=== PATIENT | male | born 1960 | race Caucasian/White ===

== ENCOUNTER → 2016-06-01 | Outpatient (REF) | payer MEDICARE ==
[~2016-06-01] MED LIST: AGGRCAP PO; ASPI325T PO; ATOR80TA14 PO; FISH100035 PO; HYDR12.55 PO; LOPR50TA PO; LOSA100T PO; METO100T PO; MULTTAB4 PO; PRAV40TA2 PO
[2016-06-01 15:10] LABS: MEAN CORPUSCULAR HEMOGLOBIN 30.8 pg (27.0-33.0); MEAN CORPUSCULAR HGB CONC 33.4 g/dl (32.0-36.5); MEAN CORPUSCULAR VOLUME 92.3 fl (80.0-96.0); RED CELL DISTRIBUTION WIDTH 13.3 % (11.5-14.5); WHITE BLOOD COUNT 8.2 K/mm3 (4.0-10.0)
[2016-06-01 17:07] LABS: ALBUMIN 3.7 GM/DL (3.2-5.2); ALBUMIN/GLOBULIN RATIO 1.19 (1.00-1.93); ALKALINE PHOSPHATASE 77 U/L (45-117); ALT/SGPT 23 U/L (12-78); ANION GAP 6 MEQ/L (8-16); AST/SGOT 17 U/L (15-37); BILIRUBIN,TOTAL 0.4 MG/DL (0.2-1.0); BLOOD UREA NITROGEN 16 MG/DL (7-18); CALCIUM LEVEL 8.5 MG/DL (8.5-10.1); CARBON DIOXIDE LEVEL 29 MEQ/L (21-32); CHLORIDE LEVEL 107 MEQ/L (98-107); CHOLESTEROL LEVEL 187 MG/DL (<200); CREATININE FOR GFR 1.13 MG/DL (0.70-1.30); FERRITIN 212 NG/ML (26-388); GLOMERULAR FILTRATION RATE > 60.0 (>56); GLUCOSE, FASTING 94 MG/DL (70-105); PERCENT SATURATION 28.3 % (19.7-37.4); POTASSIUM SERUM 4.1 MEQ/L (3.5-5.1); SODIUM LEVEL 142 MEQ/L (136-145); TOTAL IRON BINDING CAPACITY 300 UG/DL (250-450); TOTAL PROTEIN 6.8 GM/DL (6.4-8.2); TRIGLYCERIDES LEVEL 90 MG/DL (<150)
== END ==
LOC: M SFHCLACO 09:33
PROVIDERS: ATTEND Physician Assistant
DX: D64.9 Anemia, unspecified (principal); I10 Essential (primary) hypertension; E78.2 Mixed hyperlipidemia; E55.9 Vitamin D deficiency, unspecified

== ENCOUNTER → 2016-12-21 | Outpatient (REF) | payer MEDICARE ==
[2016-12-21 16:24] LABS: ALBUMIN 4.2 GM/DL (3.2-5.2); ALBUMIN/GLOBULIN RATIO 1.27 (1.00-1.93); ALKALINE PHOSPHATASE 82 U/L (45-117); ALT/SGPT 24 U/L (12-78); ANION GAP 6 MEQ/L (8-16); AST/SGOT 16 U/L (15-37); BILIRUBIN,TOTAL 0.8 MG/DL (0.2-1.0); BLOOD UREA NITROGEN 13 MG/DL (7-18); CALCIUM LEVEL 9.8 MG/DL (8.5-10.1); CARBON DIOXIDE LEVEL 30 MEQ/L (21-32); CHLORIDE LEVEL 103 MEQ/L (98-107); CREATININE FOR GFR 1.02 MG/DL (0.70-1.30); GLOMERULAR FILTRATION RATE > 60.0 (>56); GLUCOSE, FASTING 84 MG/DL (70-105); MAGNESIUM LEVEL 1.6 MG/DL (1.8-2.4); POTASSIUM SERUM 4.1 MEQ/L (3.5-5.1); SODIUM LEVEL 139 MEQ/L (136-145); TOTAL PROTEIN 7.5 GM/DL (6.4-8.2)
== END ==
LOC: M SFHCLACO 08:42
PROVIDERS: ATTEND Physician Assistant
DX: I10 Essential (primary) hypertension (principal); E78.2 Mixed hyperlipidemia; E61.2 Magnesium deficiency

== ENCOUNTER → 2016-12-28 | Outpatient (REF) | payer MEDICARE ==
[2016-12-28 15:49] LABS: MEAN CORPUSCULAR HEMOGLOBIN 32.3 pg (27.0-33.0); MEAN CORPUSCULAR HGB CONC 34.6 g/dl (32.0-36.5); MEAN CORPUSCULAR VOLUME 93.4 fl (80.0-96.0); RED CELL DISTRIBUTION WIDTH 13.7 % (11.5-14.5)
[2016-12-28 16:07] LABS: PERCENT SATURATION 28.8 % (19.7-50.0)
== END ==
LOC: M SFHCLACO 08:58
PROVIDERS: ATTEND Physician Assistant
DX: D64.9 Anemia, unspecified (principal); E78.2 Mixed hyperlipidemia; E55.9 Vitamin D deficiency, unspecified
CPT/HCPCS: 36415; 80061; 82306; 82728; 83550; 85027; G0463

== ENCOUNTER → 2017-06-28 | Outpatient (REF) | payer MEDICARE ==
[2017-06-28 15:30] LABS: HEMOGLOBIN 13.2 g/dl (13.5-17.5); MEAN CORPUSCULAR HEMOGLOBIN 31.1 pg (27.0-33.0); MEAN CORPUSCULAR HGB CONC 34.7 g/dl (32.0-36.5); MEAN CORPUSCULAR VOLUME 89.6 fl (80.0-96.0); PLATELET COUNT, AUTOMATED 331 10^3/uL (150-450); RED BLOOD COUNT 4.24 10^6/uL (4.30-6.10); RED CELL DISTRIBUTION WIDTH 13.2 % (11.5-14.5); WHITE BLOOD COUNT 7.3 10^3/uL (4.0-10.0)
[2017-06-28 15:46] LABS: ALBUMIN 3.7 GM/DL (3.2-5.2); ALBUMIN/GLOBULIN RATIO 1.16 (1.00-1.93); ALKALINE PHOSPHATASE 81 U/L (45-117); ALT/SGPT 29 U/L (12-78); ANION GAP 10 MEQ/L (8-16); AST/SGOT 21 U/L (7-37); BILIRUBIN,TOTAL 0.4 MG/DL (0.2-1.0); BLOOD UREA NITROGEN 12 MG/DL (7-18); CALCIUM LEVEL 8.5 MG/DL (8.5-10.1); CARBON DIOXIDE LEVEL 26 MEQ/L (21-32); CHLORIDE LEVEL 100 MEQ/L (98-107); CHOLESTEROL LEVEL 124 MG/DL (<200); CHOLESTEROL RISK RATIO 3.263 (<5); CREATININE FOR GFR 1.18 MG/DL (0.70-1.30); FERRITIN 268 NG/ML (26-388); GLOMERULAR FILTRATION RATE > 60.0 (>56); GLUCOSE, FASTING 76 MG/DL (70-100); HDL CHOLESTEROL 38 MG/DL (>40); IRON (FE) 88 UG/DL (65-175); LDL CHOLESTEROL 40.2 MG/DL (<100); NON-HDL-C 86 MG/DL; PERCENT SATURATION 27.4 % (19.7-50.0); POTASSIUM SERUM 3.3 MEQ/L (3.5-5.1); SODIUM LEVEL 136 MEQ/L (136-145); TOTAL IRON BINDING CAPACITY 321 UG/DL (250-450); TOTAL PROTEIN 6.9 GM/DL (6.4-8.2); TRIGLYCERIDES LEVEL 229 MG/DL (<150)
== END ==
LOC: M SFHCLACO 10:43
DX: D64.9 Anemia, unspecified (principal); I10 Essential (primary) hypertension; E78.2 Mixed hyperlipidemia; E61.2 Magnesium deficiency; E55.9 Vitamin D deficiency, unspecified; R53.83 Other fatigue
CPT/HCPCS: 83550

== ENCOUNTER → 2017-07-07 | Outpatient (REF) | payer MEDICARE ==
[2017-07-07 14:47] LABS: HEMATOCRIT 39.2 % (42.0-52.0); HEMOGLOBIN 13.4 g/dl (13.5-17.5); MEAN CORPUSCULAR HEMOGLOBIN 30.6 pg (27.0-33.0); MEAN CORPUSCULAR HGB CONC 34.2 g/dl (32.0-36.5); MEAN CORPUSCULAR VOLUME 89.5 fl (80.0-96.0); PLATELET COUNT, AUTOMATED 376 10^3/uL (150-450); RED BLOOD COUNT 4.38 10^6/uL (4.30-6.10); WHITE BLOOD COUNT 7.8 10^3/uL (4.0-10.0)
[2017-07-07 15:12] LABS: ALBUMIN 3.8 GM/DL (3.2-5.2); ALBUMIN/GLOBULIN RATIO 1.12 (1.00-1.93); ALKALINE PHOSPHATASE 95 U/L (45-117); ALT/SGPT 26 U/L (12-78); ANION GAP 8 MEQ/L (8-16); AST/SGOT 20 U/L (7-37); BILIRUBIN,TOTAL 0.3 MG/DL (0.2-1.0); BLOOD UREA NITROGEN 13 MG/DL (7-18); CALCIUM LEVEL 9.1 MG/DL (8.5-10.1); CARBON DIOXIDE LEVEL 27 MEQ/L (21-32); CHLORIDE LEVEL 101 MEQ/L (98-107); CHOLESTEROL LEVEL 123 MG/DL (<200); CHOLESTEROL RISK RATIO 2.562 (<5); CREATININE FOR GFR 1.23 MG/DL (0.70-1.30); FERRITIN 294 NG/ML (26-388); GLOMERULAR FILTRATION RATE > 60.0 (>56); GLUCOSE, FASTING 76 MG/DL (70-100); HDL CHOLESTEROL 48 MG/DL (>40); IRON (FE) 102 UG/DL (65-175); MAGNESIUM LEVEL 2.1 MG/DL (1.8-2.4); NON-HDL-C 75 MG/DL; PERCENT SATURATION 32.1 % (19.7-50.0); POTASSIUM SERUM 3.9 MEQ/L (3.5-5.1); SODIUM LEVEL 136 MEQ/L (136-145); TOTAL IRON BINDING CAPACITY 318 UG/DL (250-450); TOTAL PROTEIN 7.2 GM/DL (6.4-8.2); TRIGLYCERIDES LEVEL 130 MG/DL (<150)
[2017-07-08 10:05] LABS: TOTAL 25(OH) VITAMIN D 24.4 NG/ML (30.0-100.0)
== END ==
LOC: M SFHCLACO 10:50
DX: D64.9 Anemia, unspecified (principal); I10 Essential (primary) hypertension; E78.2 Mixed hyperlipidemia; E87.6 Hypokalemia; E61.2 Magnesium deficiency; E55.9 Vitamin D deficiency, unspecified
CPT/HCPCS: 83550

== ENCOUNTER 2018-08-30 03:23 | Inpatient (IN) | payer MEDICARE ==
[~2018-08-30] VITALS: Ht 162.6 cm; Wt 60.4 kg
[~2018-08-30 03:23] MED LIST changes: +AGGR1CAP PO; -AGGRCAP PO
[2018-08-30 03:37] LABS: ABG BASE EXCESS -4.8 (-2.0-2.0); ABG HCO3 20.2 MEQ/L (22.0-26.0); ABG O2 SATURATION 90.2 % (95.0-99.0); ABG PARTIAL PRESSURE CO2 37.5 mmHg (35.0-45.0); ABG STANDARD HCO3 20.4 MEQ/L (22.0-26.0); ABG TOTAL CO2 21.4 MEQ/L (22.0-29.0); BASO # 0.1 10^3/uL (0.0-0.2); EOS # 0.2 10^3/uL (0.0-0.50); EOS % 3.8 % (0.0-3.0); HEMATOCRIT 44.5 % (42.0-52.0); HEMOGLOBIN 14.6 g/dl (13.5-17.5); LYMPH # 2.1 10^3/uL (1.5-4.5); LYMPH % 33.7 % (24.0-44.0); MEAN CORPUSCULAR HEMOGLOBIN 31.5 pg (27.0-33.0); MEAN CORPUSCULAR HGB CONC 32.8 g/dl (32.0-36.5); MEAN CORPUSCULAR VOLUME 96.1 fl (80.0-96.0); MONO # 0.5 10^3/uL (0.0-0.8); MONO % 8.5 % (0.0-5.0); NEUTROPHILS # 3.2 10^3/uL (1.8-7.7); NEUTROPHILS % 52.7 % (36.0-66.0); PLATELET COUNT, AUTOMATED 241 10^3/uL (150-450); RED BLOOD COUNT 4.63 10^6/uL (4.30-6.10); WHITE BLOOD COUNT 6.1 10^3/uL (4.0-10.0)
[2018-08-30] MEDS ORDERED: LOSA100T8 PO (03:52)
[2018-08-30] MEDS ORDERED: AMLO10TA5 PO (03:52)
[2018-08-30] MEDS ORDERED: METO1TAB7 PO (03:52)
[2018-08-30] MEDS ORDERED: CLOP75TA2 PO (03:52)
[2018-08-30] MEDS ORDERED: MULTCAP PO (03:52)
[2018-08-30 04:12] LABS: BLOOD UREA NITROGEN 9 MG/DL (7-18); CALCIUM LEVEL 8.9 MG/DL (8.5-10.1); CARBON DIOXIDE LEVEL 25 MEQ/L (21-32); CHLORIDE LEVEL 102 MEQ/L (98-107); CK-MB VALUE MASS < 1.0 NG/ML (<3.6); CPK CREATINE PHOSPHOKINASE 89 U/L (39-308); CREATININE FOR GFR 1.03 MG/DL (0.70-1.30); GLOMERULAR FILTRATION RATE > 60.0 (>56); GLUCOSE, FASTING 127 MG/DL (70-100); MB/CK RELATIVE INDEX 1.12 (< OR =4); NT-PRO BNP 2516 PG/ML (<125); POTASSIUM SERUM 3.4 MEQ/L (3.5-5.1); SODIUM LEVEL 138 MEQ/L (136-145); TROPONIN I 0.02 NG/ML (< 0.10)
[2018-08-30] MEDS ORDERED: FUROSEMIDE 40 MG/4 ML VIAL (J1940) IV ONE (04:30)
[2018-08-30] MEDS ORDERED: ISOVUE-370 76% 100ML VIAL (Q9967) As Ordered ONE (04:31)
[2018-08-30] MEDS ORDERED: POTASSIUM CHLORIDE 10 MEQ SR TABLET PO ONE (05:00)
--- NOTE | 2018-08-30 05:13 | REPVR ---
EXAM: CT Angiography Chest With Contrast EXAM DATE/TIME: 08/30/2018 4:26 AM CLINICAL HISTORY: 58 years old, male; Signs and symptoms; Dyspnea; Additional info: R/O pe TECHNIQUE: Imaging protocol: Axial computed tomographic angiography images of the chest with intravenous contrast using CT angiography protocol. Coronal and sagittal reformatted images were created and reviewed. 3D rendering: MIP reconstructed images were created and reviewed. Radiation optimization: All CT scans at this facility use at least one of these dose optimization techniques: automated exposure control; mA and/or kV adjustment per patient size (includes targeted exams where dose is matched to clinical indication); or iterative reconstruction. Contrast material: ISO; Contrast volume: 75 ml; Contrast route: AC; COMPARISON: CR PORTABLE CHEST X-RAY 08/30/2018 3:33 AM FINDINGS: PULMONARY ARTERIES: Enhancement within the pulmonary arteries is preserved bilaterally to the distal segmental levels, without evidence for acute pulmonary embolus. The diameter of the main pulmonary trunk 29.2 mm is within normal limits. HEART AND AORTA: Cardiothoracic ratio is slightly elevated. No pericardial effusion. Aortic valve replacement noted. No thoracic aortic aneurysm or dissection. There is thoracic aortic atherosclerosis. MEDIASTINUM: No mediastinal gas. The visualized thyroid gland is homogeneous. No mediastinal hematoma. Multiple small prevascular and AP window lymph nodes are seen. Right paratracheal lymph nodes noted, measuring up to 13.5 mm in short axis. Subcarinal and azygoesophageal recess lymph nodes noted, measuring up to 10 mm in short axis. Slightly prominent hilar lymph nodes are seen, right greater than left, measuring up to 2.2 cm in maximal dimension. The significance of these mildly enlarged lymph node is uncertain. Comparison with older studies if available would be helpful. Correlation with clinical suspicion and risk factors. If there are no prior studies, and low clinical suspicion, consider followup imaging at 3-6 months to confirm resolution/stability. If there is high clinical suspicion, consider further characterization. No periesophageal inflammation. LUNGS: The lungs are symmetrically expanded. Trace amounts of pleural fluid bilaterally. No pneumothorax. Mild bibasal scattered subpleural reticular and groundglass opacities are noted, likely secondary to atelectasis. Mild focal subpleural opacities noted within the right upper lobe and right middle lobe may be secondary to atelectasis and/or scarring. Mild interstitial thickening may be secondary to interstitial edema or interstitial infiltrate. Mild peribronchial thickening within the lower lobes, right greater than left which could be secondary to vascular congestion, reactive airways disease or bronchitis. No bronchiectasis. UPPER ABDOMEN: No free air or free fluid within the visualized uppermost abdomen. There is no hiatal hernia. Partially contracted gallbladder. No calcified gallstones seen. Nonspecific perinephric stranding. Bilateral renal lesions noted, likely cysts. MSK AND BODY WALL: Mild concavity along the superior endplates of T3, T4, T5 and T7 may be related to mild compression injuries of indeterminate acuity. No suspicious bone lesion seen. IMPRESSION: No evidence for acute pulmonary embolus. Mild cardiac enlargement. Atelectasis and pulmonary parenchymal scarring. Mild interstitial thickening and peribronchial thickening to be correlated clinically, differential as given above. Mildly enlarged mediastinal and hilar lymph nodes, may be reactive, non-emergent recommendations discussed above. Mild vertebral compression deformities of indeterminate acuity. Other incidental findings discussed above. Electronically signed by: Robert Fleming On 08/30/2018 05:12:41 AM
[2018-08-30 06:13] LABS: CK-MB VALUE MASS 1.1 NG/ML (<3.6); MB/CK RELATIVE INDEX 2.08 (< OR =4); TROPONIN I 0.05 NG/ML (< 0.10)
[2018-08-30] MEDS ORDERED: FISH1000 PO (06:37)
[2018-08-30] MEDS ORDERED: VITMTA PO (06:37)
[2018-08-30] MEDS ORDERED: ATOR80TA59 PO (06:37)
[2018-08-30] MEDS ORDERED: MOM 30ML SUSPENSION UDC PO PRN (08:15)
[2018-08-30] MEDS ORDERED: ACETAMINOPHEN TAB 650MG DOSE (2X325MG) PO PRN (08:15)
--- NOTE | 2018-08-30 09:28 | REP ---
CHEST, SINGLE VIEW: COMPARISON: 05/09/2013. There is mild cardiomegaly. There appears to be some degree of vascular congestion. There are increased interstitial markings with Sugar B lines present compatible with CHF and interstitial edema. There is mild calcification and tortuous of the thoracic aorta. Metallic clips are seen in this right suprahilar region. IMPRESSION: Mild cardiomegaly with vascular congestion in a pattern most consistent with CHF and interstitial edema. Electronically Signed by Dante Pozo MD 08/30/2018 04:36 P
[2018-08-30 11:22] VITALS: BP 150/70
[2018-08-30] MEDS: ENOXAPARIN 40 MG/0.4 ML SYRINGE (J1650) SC SCH (11:53)
[2018-08-30] MEDS: FUROSEMIDE 40 MG/4 ML VIAL (J1940) IV SCH ×2 (12:00→18:00)
[2018-08-30] MEDS ORDERED: NICOTINE POLACRILEX 2 MG GUM PO PRN (12:15)
[2018-08-30] MEDS ORDERED: LEVALBUTEROL 1.25 MG/0.5 ML CONCENTRATE NEB INH PRN (12:15)
[2018-08-30 12:35] LABS: CK-MB VALUE MASS < 1.0 NG/ML (<3.6); CPK CREATINE PHOSPHOKINASE 71 U/L (39-308); MB/CK RELATIVE INDEX 1.41 (< OR =4); TROPONIN I < 0.02 NG/ML (< 0.10)
[2018-08-30] MEDS: LEVALBUTEROL 1.25 MG/0.5 ML CONCENTRATE NEB INH SCH ×3 (13:02→19:57)
[2018-08-30] MEDS ORDERED: NICOTINE 7 MG/24 HR TRANSDERMAL TD ONE (14:00)
[2018-08-30] MEDS: MULTIVITAMINS/MINERALS THERAP 1 TAB PO SCH (15:26)
[2018-08-30] MEDS: ATORVASTATIN 20 MG TAB PO SCH (15:26)
[2018-08-30] MEDS: CLOPIDOGREL 75 MG TAB PO SCH (15:26)
[2018-08-30] MEDS: amLODIPine 10 MG TAB PO SCH (15:29)
[2018-08-30] MEDS: METOPROLOL SUCC *XL* 25MG TAB (TopROL *XL*) PO SCH (15:29)
--- NOTE | 2018-08-30 15:55 | HPE ---
DATE OF ADMISSION: 08/30/2018 PRIMARY CARE PROVIDER: [facility], Dr. Adriana Menjivar. CHIEF COMPLAINT: Shortness of breath. HISTORY OF PRESENT ILLNESS: Mr. Trever Orozco is a 58-year-old male with a past medical history significant for fibroelastoma of the aortic valve, status post bioprosthetic valve replacement in 2006, history of CVA on chronic Plavix, hypertension, hyperlipidemia, active tobacco use with half pack of cigarettes a day for 26 years, reflux, essential tremor, vitamin D deficiency, ruptured gastrocnemius muscle in 2006, who presents to the emergency room with worsening shortness of breath noted at 2:00 a.m. this morning, awakening the patient from sleep. The patient does have a chronic cough, which is dry from his smoking. He denied any dyspnea on exertion, lower extremity edema, recent weight gain, and denies any fever or chills, nausea, vomiting, abdominal pain. He denies any orthopnea. He follows with his cardiothoracic surgeon in [place] for the history of fibroelastoma, status post bioprosthetic valve replacement and previously followed with fur ironer, Dr. Ontiveros, in previous years. The patient denies any sick contacts. He denies any chest pain, pressure, tightness, lightheadedness or dizziness. In the emergency room, the patient arrived with a facemask nonrebreather at 15 liters per minute. Chest x-ray shows cardiomegaly with vascular congestion consistent with congestive heart failure (CHF) and interstitial edema. Electrocardiogram (EKG) was not available. BNP was elevated at 2516. The patient admits to dietary noncompliance, active smoking. The hospitalist was called for admission for new onset congestive heart failure (CHF) in the setting of dietary indiscretion with salt and water intake, as well as smoking. PAST MEDICAL HISTORY: 1. Aortic valve fibroelastoma diagnosed in 2005 by transesophageal echo, read by Dr. Lakhwinder Catalan. 2. Ischemic CVA in 2013. Ischemic stroke of the right holland radiata causing left sided weakness in 2005. 3. Bioprosthetic aortic valve replacement in 2006. 4. Hyperlipidemia. 5. Hypertension. 6. Hypercholesterolemia. 7. Essential tremor. 8. Active tobacco abuse. 9. Gastroesophageal reflux disease (GERD). 10. Cognitive deficits due to CVA, currently on disability. 11. Vitamin D deficiency. PAST SURGICAL HISTORY: 1. Bioprosthetic valve replacement. 2. Aortic valve replacement 2006. 3. Ruptured gastrocnemius muscle with repair in 2006. ALLERGIES: No known drug allergies. 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 Lives with . The patient drinks socially, last drink was yesterday. He has never had any alcohol withdrawal symptoms. Previously smoked one pack a day for the past 26 years, currently smokes a half of a pack of cigarettes a day or 10 cigarettes per day. Lives in [place], [place]. Currently disabled since his stroke in 2005. FAMILY HISTORY: Father in his 70s with pacemaker and hypertension. Mother at unknown age, whom he has been estranged from since childhood. Siblings with diabetes. REVIEW OF SYSTEMS: 12-point system negative aside from positive findings in history of present illness. Denies any weight changes, fevers, chills. No chest pain. THe patient denies any palpitations, abdominal pain, nausea, vomiting, change in bowel habits. No history of seizures. Complains of shortness of breath. No orthopnea. Denies any dyspnea on exertion, upper or lower extremity weakness. All other systems are negative. PHYSICAL EXAMINATION: Temperature is 96.3, pulse 74, respiratory rate 17, blood pressure 166/87, 98% on room air. He came in at 91% with facemask of 10 liters of oxygen. GENERAL: The patient is awake, alert, oriented times three. No respiratory distress. No use of respiratory accessory muscles. Anicteric sclerae. No jaundice. Pupils are round and reactive to light and accommodation. Extraocular muscles are intact. Normocephalic, atraumatic. Positive jugular venous distention (JVD). No thyromegaly or cervical lymphadenopathy. Moist mucous membranes. Lungs are diminished, diminished at bilateral bases. Heart: S1, S2. Sinus rhythm. The patient has a notable scar on the anterior chest from previous surgery. Abdomen is scaphoid. Soft, nontender, nondistended. Positive bowel sounds times four quadrants. No rebound or guarding. EXTREMITIES: No cyanosis or clubbing. There is trace edema. LABORATORY DATA: Electrocardiogram (EKG) unavailable. White count 6.1, hemoglobin 14, hematocrit 44, platelet count 241. Sodium 138, potassium 3.4, chloride 102, bicarbonate 25, BUN 9, creatinine 1.03, glucose 127, calcium 8.9, total CK 89, MB fraction less than 1, relative index 1.12, troponin 0.02, BNP 2516. Two sets of blood cultures are pending. Chest x-ray on 08/30/2018, 0326 a.m., mild cardiomegaly, some degree of vascular congestion with increased interstitial markings with curly B lines, compatible with congestive heart failure (CHF) and interstitial edema. There is mild calcification and tortuosity of the thoracic aorta, metallic clips are seen in the right suprahilar region. CT of the chest on 08/30/2018 showed enhancement within pulmonary artery, preserved bilateral subsegmental levels without evidence of acute pulmonary embolus. Diameter of main pulmonary trunk 29.2 mm, within normal. Cardiothoracic ratio is slightly elevated. No pericardial effusion. Aortic valve replacement noted. No thoracic aortic aneurysm or dissection. There is thoracic aortic atherosclerosis. No mediastinal gas. Thyroid gland is homogeneous. No mediastinal hematoma. Multiple small prevascular and AP window lymphadenopathy. Right paratracheal lymph node measuring up to 13 mm in short axis. Subcarinal and azygoesophageal recess lymph nodes measuring up to 10 mm in short axis. Prominent hilar lymph nodes, right greater than left measuring up to 2.2 cm in maximal dimension. Significant of these is uncertain. Comparison would be helpful. If there are no prior studies and low clinical suspicion consider followup imaging in 3 to 6 months to confirm resolution. If there is high clinical suspicion, consider further characterization. Lungs are expanded. Trace amounts of pleural fluid bilaterally. No pneumothorax. Mild bibasilar scattered subpleural reticular and ground glass opacities are noted secondary to atelectasis. Focal subpleural opacities within the right upper lobe and right middle lobe, may be secondary to atelectasis and/or scarring. Mild interstitial thickening may be due to interstitial edema or interstitial infiltrate. Mild peribronchial thickening within the lower lobes, right greater than left, could be secondary to vascular congestion, reactive airways or bronchitis. No bronchiectasis. No hiatal hernia. No calcified gallstones. Partially contracted gallbladder. Nonspecific perinephric stranding. Bilateral renal cysts are noted. Mild concavity along the superior end plate of T3-4, T5 and T7 due to mild compression injury of indeterminate acuity. No suspicious bone lesions. No evidence of acute pulmonary embolism. Mild cardiac enlargement, atelectasis and pulmonary parenchymal scarring. Reactive mildly enlarged mediastinal and hilar lymph nodes, nonimaging recommendations discussed previously. ASSESSMENT AND PLAN: This is a 58-year-old male with a history of fibroelastoma of the aortic valve, status post aortic valve bioprosthetic replacement, ischemic CVA in the right holland radiata on chronic Plavix, hypertension, dyslipidemia, active tobacco smoker, no formal diagnosis of emphysema or chronic obstructive pulmonary disease (COPD), dyslipidemia, reflux, presented to the emergency room with acute onset of worsening shortness of breath at 3:00 a.m. this morning prompting the patient to come to the emergency room where he was found to have acute onset congestive heart failure (CHF) with unknown ejection fraction. The patient will be admitted as an inpatient for two midnights for the following acute issues: 1. Acute congestive heart failure (CHF) with unknown ejection fraction. Previous echocardiogram was in 2013, read by Dr. Lakhwinder Catalan, which showed an aortic bioprosthesis, normal left ventricular internal dimensions and wall thickness, normal left ventricular systolic and diastolic function with ejection fraction of 65% and mild to moderate left atrial dilatation. The patient is dietary noncompliant and continues to actively smoke cigarettes. He is admitted under telemetry to rule out arrhythmias. Cardiac markers will be cycled every 6 hours. He is currently on Lasix every 6 hours, net negative diuresis of 1 liter daily. Strict input and output and fluid restriction of 2 liters. Repeat echocardiogram as none is available since 2014. 2. Lactic acidosis, most likely secondary to hypoxia from congestive heart failure (CHF). No signs of active infection. Procalcitonin is negative. No empiric antibiotics. No signs of infiltrate on CT of the chest or chest x-ray. 3. 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 The patient will need a pulmonary referral and pulmonary function testing can be done as an outpatient. He will be given nebulizer treatments with Xopenex to prevent severe tachycardia in light of congestive heart failure. We will await the echo result findings to rule out pulmonary hypertension or possible cor pulmonale. We will start on Atrovent as well. Tobacco cessation counseling has been provided. The patient will be provided with nicotine replacement therapy with a patch and as needed gum. 4. History of ischemic stroke in the right holland radiata secondary to fibroelastoma of the aortic valve. Status post bioprosthesis of the aortic valve in 2006. The patient is chronically on Plavix, which we will continue. 5. Hypertension. Appears to be controlled. We will continue the patient's Toprol at 75 mg daily, Norvasc 10 mg daily, along with IV Lasix. Holding parameters will be placed to avoid renal hyperperfusion and acute kidney injury in light of recent contrast study for CT of the chest, as well as ongoing diuresis. 6. Dyslipidemia. Resume home dose of statin 80 mg daily. Check lipid profile in the morning. 7. Gastroesophageal reflux disease (GERD). Currently has no symptoms. 8. Essential tremor, chronic. 9. Vitamin D deficiency. Check vitamin D. 10. Deep vein thrombosis (DVT) prophylaxis. Compression stockings. CODE STATUS: Full code.
[2018-08-30 16:00] VITALS: BP 103/54
--- NOTE | 2018-08-30 16:17 | ECGEPIP ---
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
--- NOTE | 2018-08-30 16:18 | ECGEPIP ---
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
[2018-08-30 18:21] LABS: CK-MB VALUE MASS < 1.0 NG/ML (<3.6); CPK CREATINE PHOSPHOKINASE 66 U/L (39-308); MB/CK RELATIVE INDEX 1.52 (< OR =4); TROPONIN I < 0.02 NG/ML (< 0.10)
[2018-08-30 20:00] VITALS: BP 110/55
[2018-08-31] VITALS: BP 122/60
[2018-08-31 00:21] LABS: CK-MB VALUE MASS < 1.0 NG/ML (<3.6); CPK CREATINE PHOSPHOKINASE 61 U/L (39-308); MB/CK RELATIVE INDEX 1.64 (< OR =4); TROPONIN I 0.02 NG/ML (< 0.10)
[2018-08-31 04:00] VITALS: BP 109/51
[2018-08-31 05:06] LABS: BASO # 0.1 10^3/uL (0.0-0.2); BASO % 0.8 % (0.0-1.0); EOS # 0.2 10^3/uL (0.0-0.50); EOS % 2.4 % (0.0-3.0); HEMATOCRIT 40.6 % (42.0-52.0); HEMOGLOBIN 13.7 g/dl (13.5-17.5); LYMPH # 2.8 10^3/uL (1.5-4.5); LYMPH % 35.2 % (24.0-44.0); MEAN CORPUSCULAR HEMOGLOBIN 32.1 pg (27.0-33.0); MEAN CORPUSCULAR HGB CONC 33.7 g/dl (32.0-36.5); MEAN CORPUSCULAR VOLUME 95.1 fl (80.0-96.0); MONO # 0.8 10^3/uL (0.0-0.8); MONO % 10.1 % (0.0-5.0); NEUTROPHILS % 51.1 % (36.0-66.0); PLATELET COUNT, AUTOMATED 218 10^3/uL (150-450); RED BLOOD COUNT 4.27 10^6/uL (4.30-6.10); WHITE BLOOD COUNT 7.9 10^3/uL (4.0-10.0)
[2018-08-31 05:25] LABS: BLOOD UREA NITROGEN 10 MG/DL (7-18); CALCIUM LEVEL 8.4 MG/DL (8.5-10.1); CARBON DIOXIDE LEVEL 27 MEQ/L (21-32); CHLORIDE LEVEL 107 MEQ/L (98-107); CREATININE FOR GFR 0.91 MG/DL (0.70-1.30); GLOMERULAR FILTRATION RATE > 60.0 (>56); GLUCOSE, FASTING 91 MG/DL (70-100); POTASSIUM SERUM 3.2 MEQ/L (3.5-5.1); SODIUM LEVEL 142 MEQ/L (136-145)
[2018-08-31 05:26] LABS: MAGNESIUM LEVEL 1.7 MG/DL (1.8-2.4)
[2018-08-31] MEDS: FUROSEMIDE 40 MG/4 ML VIAL (J1940) IV SCH ×4 (06:47→18:00)
[2018-08-31] MEDS: LEVALBUTEROL 1.25 MG/0.5 ML CONCENTRATE NEB INH SCH ×4 (07:40→20:00)
[2018-08-31 08:00] VITALS: BP 133/63
--- NOTE | 2018-08-31 08:48 | REP ---
CHEST, TWO VIEWS: Two views of the chest are performed. Comparison 08/30/2018. CHF and interstitial edema pattern has essentially resolved. Heart is normal in size. There is calcification and tortuosity of the thoracic aorta. Mediastinal silhouette is unchanged. Metallic clips are again seen in the right suprahilar region. Prosthetic heart valve is noted. IMPRESSION: CHF pattern has essentially resolved. Electronically Signed by Dante Pozo MD 08/31/2018 04:33 P
[2018-08-31] MEDS: MAG SULF 1GM/100ML (MAG RUN) 1 GM in APPROPRIATE DILUENT 1 EA IV SCH ×2 (08:55→10:16)
[2018-08-31] MEDS: amLODIPine 10 MG TAB PO SCH (08:56)
[2018-08-31] MEDS: ENOXAPARIN 40 MG/0.4 ML SYRINGE (J1650) SC SCH (08:56)
[2018-08-31] MEDS: ATORVASTATIN 20 MG TAB PO SCH (08:57)
[2018-08-31] MEDS: CLOPIDOGREL 75 MG TAB PO SCH (08:57)
[2018-08-31] MEDS: POTASSIUM CHLORIDE 10 MEQ SR TABLET PO SCH ×2 (08:57→10:16)
[2018-08-31] MEDS: METOPROLOL SUCC *XL* 25MG TAB (TopROL *XL*) PO SCH (08:58)
[2018-08-31] MEDS: NICOTINE 7 MG/24 HR TRANSDERMAL TD SCH (08:58)
[2018-08-31] MEDS: MULTIVITAMINS/MINERALS THERAP 1 TAB PO SCH (08:58)
--- NOTE | 2018-08-31 10:04 | IPNPDOC ---
Date Seen The patient was seen on 08/31/18. Progress Note SUBJECTIVE: Tele was unremarkable overnight. i/o reviewed and pt has been net negative for the past 48 hrs. His SOB is improved, and denies REYES, orthopnea. no fevers, chills. No chest pain. THe patient denies any palpitations, abdominal pain, nausea, vomiting, change in bowel habits. No history of seizures. PHYSICAL EXAMINATION: VITALS: PLS SEE BELOW GENERAL: The patient is awake, alert, oriented times three. No respiratory distress. No use of respiratory accessory muscles. Anicteric sclerae. No jaundice. Pupils are round and reactive to light and accommodation. Extraocula r muscles are intact. Normocephalic, atraumatic. Positive jugular venous distention (JVD). No thyromegaly or cervical lymphadenopathy. Moist mucous membranes. Lungs diminished at bilateral bases. Heart: S1, S2. Sinus rhythm. The patient has a notable scar on the anterior chest from previous surgery. Abdomen is scaphoid. Soft, nontender, nondistended. Positive bowel sounds times four quadrants. No rebound or guarding. EXTREMITIES: No cyanosis or clubbing. There is trace edema. LABORATORY DATA, IMAGING STUDIES, MICROBIOLOGY: Electrocardiogram (EKG) pls see below. reviewed Two sets of blood cultures are pending. Chest x-ray on 08/30/2018, 0326 a.m., mild cardiomegaly, some degree of vascular congestion with increased interstitial markings with curly B lines, compatible with congestive heart failure (CHF) and interstitial edema. There is mild calcification and tortuosity of the thoracic aorta, metallic clips are seen in the right suprahilar region. CT of the chest on 08/30/2018 showed enhancement within pulmonary artery, preserved bilateral subsegmental levels without evidence of acute pulmonary embolus. Diameter of main pulmonary trunk 29.2 mm, within normal. Cardiothoracic ratio is slightly elevated. No pericardial effusion. Aortic valve replacement noted. No thoracic aortic aneurysm or dissection. There is thoracic aortic atherosclerosis. No mediastinal gas. Thyroid gland is homogeneous. No mediastinal hematoma. Multiple small prevascular and AP window lymphadenopathy. Right paratracheal lymph node measuring up to 13 mm in short axis. Subcarinal and azygoesophageal recess lymph nodes measuring up to 10 mm in short axis. Prominent hilar lymph nodes, right greater than left measuring up to 2.2 cm in maximal dimension. Significant of these is uncertain. Comparison would be helpful. If there are no prior studies and low clinical suspicion consider followup imaging in 3 to 6 months to confirm resolution. If there is high clinical suspicion, consider further characterization. Lungs are expanded. Trace amounts of pleural fluid bilaterally. No pneumothorax. Mild bibasilar scattered subpleural reticular and ground glass opacities are noted secondary to atelectasis. Focal subpleural opacities within the right upper lobe and right middle lobe, may be secondary to atelectasis and/or scarring. Mild interstitial thickening may be due to interstitial edema or interstitial infiltrate. Mild peribronchial thickening within the lower lobes, right greater than left, could be secondary to vascular congestion, reactive airways or bronchitis. No bronchiectasis. No hiatal hernia. No calcified gallstones. Partially contracted gallbladder. Nonspecific perinephric stranding. Bilateral renal cysts are noted. Mild concavity along the superior end plate of T3-4, T5 and T7 due to mild compression injury of indeterminate acuity. No suspicious bone lesions. No evidence of acute pulmonary embolism. Mild cardiac enlargement, atelectasis and pulmonary parenchymal scarring. Reactive mildly enlarged mediastinal and hilar lymph nodes, nonimaging recommendations discussed previously. ASSESSMENT AND PLAN: Mr. Trever Orozco is a 58-year-old male with a past medical history significant for fibroBlastoma of the aortic valve, status post bioprosthetic valve replacement in 2006, history of CVA on chronic Plavix, hypertension, hyperlipidemia, active tobacco use with half pack of cigarettes a day for 26 years, reflux, essential tremor, vitamin D deficiency, ruptured gastrocnemius muscle in 2006, who presents to the emergency room with worsening shortness of breath noted at 2:00 a.m. this morning, awakening the patient from sleep. The patient does have a chronic cough, which is dry from his smoking. He denied any dyspnea on exertion, lower extremity edema, recent weight gain, and denies any fever or chills, nausea, vomiting, abdominal pain. He denies any orthopnea. He follows with his cardiothoracic surgeon in [place] for the history of fibroelastoma, status post bioprosthetic valve replacement and previously followed with reed dipper, Dr. Ontiveros, in previous years. The patient denies any sick contacts. He denies any chest pain, pressure, tightness, lightheadedness or dizziness. In the emergency room, the patient arrived with a facemask nonrebreather at 15 liters per minute. Chest x-ray shows cardiomegaly with vascular congestion consistent with congestive heart failure (CHF) and interstitial edema. Electrocardiogram (EKG) was not available. BNP was elevated at 2516. The patient admits to dietary noncompliance, active smoking. The hospitalist was called for admission for new onset congestive heart failure (CHF) in the setting of dietary indiscretion with salt and water intake, as well as smoking. Acute hypoxic respiratory failure secondary to acute CHF, resolved RR was 24, o2 sat 84% on room air, tripodding, and with conversational dyspnea, nasal flaring and retractions. on iv lasix, fluid restriction, and daily weights. Acute congestive heart failure (CHF) with unknown ejection fraction. Previous echocardiogram was in 2013, read by Dr. Lakhwinder Catalan, which showed an aortic bioprosthesis, normal left ventricular internal dimensions and wall thickness, normal left ventricular systolic and diastolic function with ejection fraction of 65% and mild to moderate left atrial dilatation. The patient is dietary noncompliant and continues to actively smoke cigarettes. He is admitted under telemetry to rule out arrhythmias. Cardiac markers will be cycled every 6 hours. He is currently on Lasix every 6 hours, net negative diuresis of 1 liter daily. Strict input and output and fluid restriction of 2 liters. Repeat echocardiogram as none is available since 2013. Lactic acidosis, resolved most likely secondary to hypoxia from congestive heart failure (CHF). No signs of active infection. Procalcitonin is negative. No empiric antibiotics. No signs of infiltrate on CT of the chest or chest x-ray. 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 The patient will need a pulmonary referral and pulmonary function testing can be done as an outpatient. He will be given nebulizer treatments with Xopenex to prevent severe tachycardia in light of congestive heart failure. We will await the echo result findings to rule out pulmonary hypertension or possible cor pulmonale. We will start on Atrovent as well. Tobacco cessation counseling has been provided. The patient will be provided with nicotine replacement therapy with a patch and as needed gum. 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 Status post bioprosthesis of the aortic valv e in 2006. The patient is chronically on Plavix, which we will continue. Hypertension. Appears to be controlled. We will continue the patient's Toprol at 75 mg daily, Norvasc 10 mg daily, along with IV Lasix. Holding parameters will be placed to avoid renal hyperperfusion and acute kidney injury in light of recent contrast study for CT of the chest, as well as ongoing diuresis. Dyslipidemia. Resume home dose of statin 80 mg daily. Check lipid profile in the morning. Gastroesophageal reflux disease (GERD). Currently has no symptoms. Essential tremor, chronic. Vitamin D deficiency. Check vitamin D. Deep vein thrombosis (DVT) prophylaxis. Compression stockings. VS, I&O, 24H, Fishbone Vital Signs/I&O Vital Signs Date Time Temp Pulse Resp B/P (MAP) Pulse Ox O2 Delivery O2 Flow Rate FiO2 08/31/18 08:58 80 133/63 08/31/18 08:00 98.2 16 95 08/30/18 20:00 1.0 08/30/18 11:07 Room Air I&O- Last 24 Hours up to 6 AM 08/31/18 06:00 Intake Total 960 ml Output Total 400 ml Balance 560 ml Laboratory Data 24H LABS Laboratory Tests 2 08/30/18 11:57: Lactic Acid Level 1.5, Total Creatine Kinase 71, Creatine Kinase MB < 1.0, Creatine Kinase MB Relative Index 1.41, Troponin I < 0.02# 08/30/18 17:44: Total Creatine Kinase 66, Creatine Kinase MB < 1.0, Creatine Kinase MB Relative Index 1.52, Troponin I < 0.02 08/30/18 23:45: Total Creatine Kinase 61, Creatine Kinase MB < 1.0, Creatine Kinase MB Relative Index 1.64, Troponin I 0.02 08/31/18 04:44: Lactic Acid Level 1.1, Immature Granulocyte % (Auto) 0.4, White Blood Count 7.9, Red Blood Count 4.27L, Hemoglobin 13.7, Hematocrit 40.6L, Mean Corpuscular Volume 95.1, Mean Corpuscular Hemoglobin 32.1, Mean Corpuscular Hemoglobin Concent 33.7, Red Cell Distribution Width 13.8, Platelet Count 218, Neutrophils (%) (Auto) 51.1, Lymphocytes (%) (Auto) 35.2, Monocytes (%) (Auto) 10.1H, Eosinophils (%) (Auto) 2.4, Basophils (%) (Auto) 0.8, Neutrophils # (Auto) 4.0, Lymphocytes # (Auto) 2.8, Monocytes # (Auto) 0.8, Eosinophils # (Auto) 0.2, Basophils # (Auto) 0.1, Nucleated Red Blood Cells % (auto) 0.0, Anion Gap 8, Glomerular Filtration Rate > 60.0, Blood Urea Nitrogen 10, Creatinine 0.91, Sodium Level 142, Potassium Level 3.2L, Chloride Level 107, Carbon Dioxide Level 27, Calcium Level 8.4L, Magnesium Level 1.7L CBC/BMP Laboratory Tests 08/31/18 04:44 Red Blood Count 4.27 L, Mean Corpuscular Volume 95.1, Mean Corpuscular Hemoglobin 32.1, Mean Corpuscular Hemoglobin Concent 33.7, Red Cell Distribution Width 13.8, Neutrophils (%) (Auto) 51.1, Lymphocytes (%) (Auto) 35.2, Monocytes (%) (Auto) 10.1 H, Eosinophils (%) (Auto) 2.4, Basophils (%) (Auto) 0.8, Neutrophils # (Auto) 4.0, Lymphocytes # (Auto) 2.8, Monocytes # (Auto) 0.8, Eosinophils # (Auto) 0.2, Basophils # (Auto) 0.1, Calcium Level 8.4 L Microbiology Microbiology 08/30/18 Blood Culture - Preliminary, Resulted No growth after 24 hours . All specim... 08/30/18 Blood Culture - Preliminary, Resulted No growth after 24 hours . All specim... GILBERTO BAIN MD Aug 31, 2018 10:04
[2018-08-31 12:00] VITALS: BP 116/57
[2018-08-31 16:00] VITALS: BP 101/52
[2018-08-31 20:00] VITALS: BP 125/67
[2018-09-01] VITALS: BP 112/61
[2018-09-01 04:00] VITALS: BP 132/60
[2018-09-01 05:04] LABS: BASO # 0.1 10^3/uL (0.0-0.2); BASO % 0.8 % (0.0-1.0); EOS # 0.3 10^3/uL (0.0-0.50); HEMATOCRIT 41.8 % (42.0-52.0); HEMOGLOBIN 14.1 g/dl (13.5-17.5); LYMPH # 2.8 10^3/uL (1.5-4.5); LYMPH % 39.5 % (24.0-44.0); MEAN CORPUSCULAR HEMOGLOBIN 31.5 pg (27.0-33.0); MEAN CORPUSCULAR HGB CONC 33.7 g/dl (32.0-36.5); MEAN CORPUSCULAR VOLUME 93.3 fl (80.0-96.0); MONO # 0.8 10^3/uL (0.0-0.8); MONO % 11.4 % (0.0-5.0); NEUTROPHILS # 3.2 10^3/uL (1.8-7.7); PLATELET COUNT, AUTOMATED 259 10^3/uL (150-450); RED BLOOD COUNT 4.48 10^6/uL (4.30-6.10); WHITE BLOOD COUNT 7.2 10^3/uL (4.0-10.0)
[2018-09-01 05:22] LABS: BLOOD UREA NITROGEN 15 MG/DL (7-18); CALCIUM LEVEL 8.8 MG/DL (8.5-10.1); CARBON DIOXIDE LEVEL 26 MEQ/L (21-32); CHLORIDE LEVEL 106 MEQ/L (98-107); CREATININE FOR GFR 1.04 MG/DL (0.70-1.30); GLOMERULAR FILTRATION RATE > 60.0 (>56); GLUCOSE, FASTING 87 MG/DL (70-100); MAGNESIUM LEVEL 2.1 MG/DL (1.8-2.4); POTASSIUM SERUM 3.6 MEQ/L (3.5-5.1); SODIUM LEVEL 141 MEQ/L (136-145)
[2018-09-01] MEDS: FUROSEMIDE 40 MG/4 ML VIAL (J1940) IV SCH ×2 (05:53)
[2018-09-01] MEDS ORDERED: LASI20TA3 PO (06:29)
[2018-09-01] MEDS ORDERED: LOSA100T50 PO (07:23)
[2018-09-01] MEDS: LEVALBUTEROL 1.25 MG/0.5 ML CONCENTRATE NEB INH SCH ×2 (07:33→11:06)
[2018-09-01 08:00] VITALS: BP 112/63
[2018-09-01 08:47] VITALS: BP 113/63
[2018-09-01] MEDS: amLODIPine 10 MG TAB PO SCH (08:47)
[2018-09-01] MEDS: METOPROLOL SUCC *XL* 25MG TAB (TopROL *XL*) PO SCH (08:47)
[2018-09-01] MEDS: NICOTINE 7 MG/24 HR TRANSDERMAL TD SCH (08:48)
[2018-09-01] MEDS: ATORVASTATIN 20 MG TAB PO SCH (08:49)
[2018-09-01] MEDS: CLOPIDOGREL 75 MG TAB PO SCH (08:49)
[2018-09-01] MEDS: ENOXAPARIN 40 MG/0.4 ML SYRINGE (J1650) SC SCH (08:49)
[2018-09-01] MEDS: MULTIVITAMINS/MINERALS THERAP 1 TAB PO SCH (08:49)
[2018-09-01] MEDS ORDERED: LOSARTAN 50 MG TAB PO SCH (09:00)
--- NOTE | 2018-09-01 09:04 | ECHO ---
DATE OF SERVICE: 08/30/2018 DATE OF : 1960 REFERRING PHYSICIAN: Dr. Noreen [place] PATIENT LOCATION: Room 3203 REASON FOR ECHOCARDIOGRAM: Heart failure, unspecified. 2-D MEASUREMENTS: IVS: 1.3 cm LV: 4.7 cm LVPW: 1.3 cm LA: 4.6 cm Aorta: 3.4 cm RV: 2.7 cm IVC: 1.5 cm DOPPLER MEASUREMENTS: Peak velocity across the aortic valve: 3.5 m/s Peal velocity across the LVOT: 1.0 m/s Peak gradient across the aortic valve: 60 mmHg Mean gradient across the aortic valve: 28 mmHg Mitral E: 0.97 Mitral A: 0.75 Ratio: 1.3 Maximum tricuspid valve velocity: 2.1 m/s 2-D COMMENTS: 1. Normal left ventricular size with mildly increased left ventricular wall thickness and a normal global left ventricular systolic function with an estimated LVEF 65-70%. 2. Mildly enlarged left atrium. Normal right atrium and right ventricle. 3. The atrial septum appeared to be normal without evidence of defect or shunt. 4. Normal aortic root. 5. Trace pericardial effusion noted, no evidence of cardiac tamponade. 6. Bioprosthetic valve noted in the aortic valve position. Normal mitral valve, tricuspid valve, and pulmonic valves. The proximal pulmonary artery branches appear to be normal. 7. The inferior vena cava was normal in size, central venous pressure is most likely normal. Doppler detects mild aortic radiation, trace mitral regurgitation, trace pulmonic regurgitation, and trace tricuspid regurgitation. The calculated pulmonary artery systolic pressure was normal. Assessment of the left ventricular diastolic function appeared to be normal. IMPRESSION: 1. Normal global left ventricular systolic function with a mild concentric left ventricular hypertrophy. 2. Bioprosthetic aortic valve with mild aortic regurgitation and mild to moderate stenosis. 3. Mildly enlarged left atrium with trace mitral regurgitation. 4. Trace tricuspid regurgitation with a normal calculated pulmonary artery systolic pressure. 5. Trace pericardial effusion, no evidence of cardiac tamponade. 6. The case was discussed with attending. He will benefit from a repeat echocardiogram within 6 to 12 months to reassess the bioprosthetic aortic valve.
--- NOTE | 2018-09-01 09:34 | DS.PDOC ---
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 Status post bioprosthesis of the aortic valve in 2006. Hypertension. Dyslipidemia. Gastroesophageal reflux disease (GERD) Essential tremor Vitamin D deficiency. DISCHARGE MEDICATIONS: Pls see Below DISCHARGE INSTRUCTIONS: 2Liter fluid restriction, daily weights, no added salt diet, tobacco cessation counseling immediate fu with your preschool teacher aide and physician within 5 days of hospital discharge. HISTORY OF PRESENTING ILLNESS: Mr. Trever Orozco is a 58-year-old male with a past medical history significant for fibroBlastoma of the aortic valve, status post bioprosthetic valve replacement in 2006, history of CVA on chronic Plavix, hypertension, hyperlipidemia, active tobacco use with half pack of cigarettes a day for 26 years, reflux, essential tremor, vitamin D deficiency, ruptured gastrocnemius muscle in 2006, who presents to the emergency room with worsening shortness of breath noted at 2:00 a.m. this morning, awakening the patient from sleep. The patient does have a chronic cough, which is dry from his smoking. He denied any dyspnea on exertion, lower extremity edema, recent weight gain, and denies any fever or chills, nausea, vomiting, abdominal pain. He denies any orthopnea. He follows with his cardiothoracic surgeon in [place] for the history of fibroelastoma, status post bioprosthetic valve replacement and previously followed with preschool teacher aide, Dr. Ontiveros, in previous years. The patient denies any sick contacts. He denies any chest pain, pressure, tightness, lightheadedness or dizziness. In the emergency room, the patient arrived with a facemask nonrebreather at 15 liters per minute. Chest x-ray shows cardiomegaly with vascular congestion consistent with congestive heart failure (CHF) and interstitial edema. Electrocardiogram (EKG) was not available. BNP was elevated at 2516. The patient admits to dietary noncompliance, active smoking. The hospitalist was called for admission for new onset congestive heart failure (CHF) in the setting of dietary indiscretion with salt and water intake, as well as smoking. HOSPITAL COURSE Acute hypoxic respiratory failure secondary to acute CHF, resolved RR was 24, o2 sat 84% on room air, tripodding, and with conversational dyspnea, nasal flaring and retractions. on iv lasix, fluid restriction, and daily weights. Acute congestive heart failure (CHF) with unknown ejection fraction. Previous echocardiogram was in 2013, read by Dr. Lakhwinder Catalan, which showed an aortic bioprosthesis, normal left ventricular internal dimensions and wall thickness, normal left ventricular systolic and diastolic function with ejection fraction of 65% and mild to moderate left atrial dilatation. The patient is dietary noncompliant and continues to actively smoke cigarettes. He is admitted under telemetry to rule out arrhythmias. Cardiac markers will be cycled every 6 hours. He is currently on Lasix every 6 hours, net negative diuresis of 1 liter daily. Strict input and output and fluid restriction of 2 liters. Repeat echocardiogram as none is available since 2013. admit wt 67 kg discharge wt 60 kg Lactic acidosis, resolved most likely secondary to hypoxia from congestive heart failure (CHF). No signs of active infection. Procalcitonin is negative. No empiric antibiotics. No signs of infiltrate on CT of the chest or chest x-ray. 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 The patient will need a pulmonary referral and pulmonary function testing can be done as an outpatient. He will be given nebulizer treatments with Xopenex to prevent severe tachycardia in light of congestive heart failure. We will await the echo result findings to rule out pulmonary hypertension or possible cor pulmonale. We will start on Atrovent as well. Tobacco cessation counseling has been provided. The patient will be provided with nicotine replacement therapy with a patch and as needed gum. 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 Status post bioprosthesis of the aortic valve in 2006. The patient is chronically on Plavix, which we will continue. Hypertension. Appears to be controlled. We will continue the patient's Toprol at 75 mg daily, Norvasc 10 mg daily, along with IV Lasix. Holding parameters will be placed to avoid renal hyperperfusion and acute kidney injury in light of recent contrast study for CT of the chest, as well as ongoing diuresis. Dyslipidemia. Resume home dose of statin 80 mg daily. Check lipid profile in the morning. Gastroesophageal reflux disease (GERD). Currently has no symptoms. Essential tremor, chronic. Vitamin D deficiency. Check vitamin D. Deep vein thrombosis (DVT) prophylaxis. Compression stockings. PHYSICAL EXAMINATION: VITALS: PLS SEE BELOW GENERAL: The patient is awake, alert, oriented times three. No respiratory distress. No use of respiratory accessory muscles. Anicteric sclerae. No jaundice. Pupils are round and reactive to light and accommodation. Extraocular muscles are intact. Normocephalic, atraumatic. Positive jugular venous distention (JVD). No thyromegaly or cervical lymphadenopathy. Moist mucous membranes. Lungs diminished at bilateral bases. Heart: S1, S2. Sinus rhythm. The patient has a notable scar on the anterior chest from previous surgery. Abdomen is scaphoid. Soft, nontender, nondistended. Positive bowel sounds times four quadrants. No rebound or guarding. EXTREMITIES: No cyanosis or clubbing. There is trace edema. LABORATORY DATA, IMAGING STUDIES, MICROBIOLOGY: Electrocardiogram (EKG) pls see below. reviewed Two sets of blood cultures are negative Chest x-ray on 08/30/2018, 0326 a.m., mild cardiomegaly, some degree of vascular congestion with increased interstitial markings with curly B lines, compatible with congestive heart failure (CHF) and interstitial edema. There is mild calcification and tortuosity of the thoracic aorta, metallic clips are seen in the right suprahilar region. CT of the chest on 08/30/2018 showed enhancement within pulmonary artery, preserved bilateral subsegmental levels without evidence of acute pulmonary embolus. Diameter of main pulmonary trunk 29.2 mm, within normal. Cardiothoracic ratio is slightly elevated. No pericardial effusion. Aortic valve replacement noted. No thoracic aortic aneurysm or dissection. There is thoracic aortic atherosclerosis. No mediastinal gas. Thyroid gland is homogeneous. No mediastinal hematoma. Multiple small prevascular and AP window lymphadenopathy. Right paratracheal lymph node measuring up to 13 mm in short axis. Subcarinal and azygoesophageal recess lymph nodes measuring up to 10 mm in short axis. Prominent hilar lymph nodes, right greater than left measuring up to 2.2 cm in maximal dimension. Significant of these is uncertain. Comparison would be helpful. If there are no prior studies and low clinical suspicion consider followup imaging in 3 to 6 months to confirm resolution. If there is high clinical suspicion, consider further characterization. Lungs are expanded. Trace amounts of pleural fluid bilaterally. No pneumothorax. Mild bibasilar scattered subpleural reticular and ground glass opacities are noted secondary to atelectasis. Focal subpleural opacities within the right upper lobe and right middle lobe, may be secondary to atelectasis and/or scarring. Mild interstitial thickening may be due to interstitial edema or interstitial infiltrate. Mild peribronchial thickening within the lower lobes, right greater than left, could be secondary to vascular congestion, reactive airways or bronchitis. No bronchiectasis. No hiatal hernia. No calcified gallstones. Partially contracted gallbladder. Nonspecific perinephric stranding. Bilateral renal cysts are noted. Mild concavity along the superior end plate of T3-4, T5 and T7 due to mild compression injury of indeterminate acuity. No suspicious bone lesions. No evidence of acute pulmonary embolism. Mild cardiac enlargement, atelectasis and pulmonary parenchymal scarring. Reactive mildly enlarged mediastinal and hilar lymph nodes, nonimaging recommendations discussed previously. DATE OF SERVICE: 08/30/2018 DATE OF : 1960 REFERRING PHYSICIAN: Dr. Gilberto Bain PATIENT LOCATION: Room 3203 REASON FOR ECHOCARDIOGRAM: Heart failure, unspecified. 2-D MEASUREMENTS: IVS: 1.3 cm LV: 4.7 cm LVPW: 1.3 cm LA: 4.6 cm Aorta: 3.4 cm RV: 2.7 cm IVC: 1.5 cm DOPPLER MEASUREMENTS: Peak velocity across the aortic valve: 3.5 m/s Peal velocity across the LVOT: 1.0 m/s Peak gradient across the aortic valve: 60 mmHg Mean gradient across the aortic valve: 28 mmHg Mitral E: 0.97 Mitral A: 0.75 Ratio: 1.3 Maximum tricuspid valve velocity: 2.1 m/s 2-D COMMENTS: 1. Normal left ventricular size with mildly increased left ventricular wall thickness and a normal global left ventricular systolic function with an estimated LVEF 65-70%. 2. Mildly enlarged left atrium. Normal right atrium and right ventricle. 3. The atrial septum appeared to be normal without evidence of defect or shunt. 4. Normal aortic root. 5. Trace pericardial effusion noted, no evidence of cardiac tamponade. TIME SPENT ON HOSPITAL DISCHARGE: 35 MIN Vital Signs/I&Os Vital Signs Date Time Temp Pulse Resp B/P (MAP) Pulse Ox O2 Delivery O2 Flow Rate FiO2 09/01/18 08:47 112/63 09/01/18 08:47 69 09/01/18 04:00 98.1 16 99 08/30/18 20:00 1.0 08/30/18 11:07 Room Air I&O- Last 24 Hours up to 6 AM 09/01/18 06:00 Intake Total 1400 ml Output Total 2875 ml Balance -1475 ml Laboratory Data Labs 24H Laboratory Tests 2 09/01/18 04:45: Immature Granulocyte % (Auto) 0.3, White Blood Count 7.2, Red Blood Count 4.48, Hemoglobin 14.1, Hematocrit 41.8L, Mean Corpuscular Volume 93.3, Mean Corpuscular Hemoglobin 31.5, Mean Corpuscular Hemoglobin Concent 33.7, Red Cell Distribution Width 13.7, Platelet Count 259, Neutrophils (%) (Auto) 44.0, Lymphocytes (%) (Auto) 39.5, Monocytes (%) (Auto) 11.4H, Eosinophils (%) (Auto) 4.0H, Basophils (%) (Auto) 0.8, Neutrophils # (Auto) 3.2, Lymphocytes # (Auto) 2.8, Monocytes # (Auto) 0.8, Eosinophils # (Auto) 0.3, Basophils # (Auto) 0.1, Nucleated Red Blood Cells % (auto) 0.0, Anion Gap 9, Glomerular Filtration Rate > 60.0, Blood Urea Nitrogen 15, Creatinine 1.04, Sodium Level 141, Potassium Level 3.6, Chloride Level 106, Carbon Dioxide Level 26, Calcium Level 8.8, Magn esium Level 2.1 CBC/BMP Laboratory Tests 09/01/18 04:45 Red Blood Count 4.48, Mean Corpuscular Volume 93.3, Mean Corpuscular Hemoglobin 31.5, Mean Corpuscular Hemoglobin Concent 33.7, Red Cell Distribution Width 13.7, Neutrophils (%) (Auto) 44.0, Lymphocytes (%) (Auto) 39.5, Monocytes (%) (Auto) 11.4 H, Eosinophils (%) (Auto) 4.0 H, Basophils (%) (Auto) 0.8, Neutrophils # (Auto) 3.2, Lymphocytes # (Auto) 2.8, Monocytes # (Auto) 0.8, Eosinophils # (Auto) 0.3, Basophils # (Auto) 0.1, Calcium Level 8.8 Microbiology Microbiology 08/30/18 Blood Culture - Preliminary, Resulted No Growth after 48 hours. All Specime... 08/30/18 Blood Culture - Preliminary, Resulted No Growth after 48 hours. All Specime... Discharge Medications Scheduled Amlodipine Besylate (Amlodipine Besylate) 10 Mg Tablet, 10 MG PO DAILY, (Reported) Atorvastatin Calcium (Atorvastatin Calcium) 80 Mg Tablet, 80 MG PO DAILY, (Reported) Clopidogrel Bisulfate (Clopidogrel) 75 Mg Tablet, 75 MG PO DAILY, (Reported) Furosemide (Lasix) 20 Mg Tablet, 20 MG PO DAILY Losartan Potassium (Losartan Potassium) 100 Mg Tablet, 100 MG PO DAILY Metoprolol Succinate (Metoprolol Succinate) 50 Mg Tab.er.24h, 75 MG PO DAILY, (Reported) Multivitamins (Thera M Plus Tablet) 1 Each Tablet, 1 TAB PO DAILY, (Reported) [place]-3 Fatty Acids/Fish Oil (Fish Oil 1,000 mg Capsule) 1 Each Capsule, 1,000 MG PO DAILY, (Reported) Allergies Coded Allergies: No Known Allergies (Unverified , 05/10/13) GILBERTO BAIN MD Sep 01, 2018 09:29
[2018-09-01 13:23] VITALS: BP 140/65
[2018-09-02] MEDS ORDERED: FUROSEMIDE 20 MG TAB PO SCH (09:00)
== END 2018-09-01 13:42 | disposition home or self-care (01) | DRG 291 ==
LOC: M ED 03:23 → M ED INP 08:07 → M ICU 11:18
PROVIDERS: ADMIT General Practice; ATTEND General Practice
DX: I11.0 Hypertensive heart disease with heart failure (principal); J96.01 Acute respiratory failure with hypoxia; E87.2 Acidosis; I50.9 Heart failure, unspecified; F17.210 Nicotine dependence, cigarettes, uncomplicated; Z86.73 Personal history of transient ischemic attack (TIA), and cerebral infarction without residual deficits; E55.9 Vitamin D deficiency, unspecified; K21.9 Gastro-esophageal reflux disease without esophagitis; E78.5 Hyperlipidemia, unspecified; G25.0 Essential tremor; Z95.2 Presence of prosthetic heart valve; Z79.899 Other long term (current) drug therapy